=== PATIENT | female | born 1990 | race Caucasian/White ===

== ENCOUNTER 2017-01-29 20:09 | Inpatient (IN) | payer OTHER ==
[~2017-01-29] VITALS: Ht 165.1 cm; Wt 103.0 kg
[2017-01-29 20:44] LABS: BILIRUBIN NEGATIVE (NEGATIVE); BLOOD NEGATIVE Ery/uL (NEGATIVE); CLARITY CLEAR (CLEAR); COLOR YELLOW (YELLOW); GLUCOSE (U) NORMAL (NORMAL); KETONE (U) TRACE mg/dL (NEGATIVE); LEUKOCYTES NEGATIVE Leu/uL (NEGATIVE); NITRITE NEGATIVE (NEGATIVE); PROTEIN 1+ mg/dL (NEGATIVE); SPECIFIC GRAVITY >=1.030 (1.001-1.030)
[2017-01-29 20:49] LABS: BACTERIA TRACE; MUCOUS MODERATE
[2017-01-30 04:30] LABS: HCT 36.5 % (37.0-47.0); HGB 12.5 g/dl (12.5-16.0); MCH 31.4 pg (25.0-31.0); MCHC 34.2 g/dL (32.0-36.0); MCV 91.7 fL (78.0-100.0); MPV 11.6 fL (6.0-9.5); RBC 3.98 M/uL (4.20-5.40); RDW 13.6 % (11.5-14.0); WBC 15.1 K/uL (4.0-10.5)
[2017-01-30 04:53] LABS: ALBUMIN 3.2 g/dL (3.5-5.0); BILIRUBIN - TOTAL 0.5 mg/dL (0.1-1.0); CREATININE 0.8 mg/dL (0.5-1.0); GLOBULIN (CALCULATION) 3.1 g/dL (2.2-4.2); POTASSIUM 4.4 mmol/L (3.5-5.1); TOTAL PROTEIN 6.3 g/dL (6.4-8.3); URIC ACID 5.1 mg/dL (2.4-5.7)
[2017-01-30 18:46] LABS: HGB 10.9 g/dl (12.5-16.0); MCH 31.9 pg (25.0-31.0); MCHC 34.1 g/dL (32.0-36.0); MCV 93.6 fL (78.0-100.0); RBC 3.42 M/uL (4.20-5.40); RDW 13.8 % (11.5-14.0)
== END 2017-02-01 10:50 | disposition home or self-care (01) | DRG 775 ==
LOC: FOD 20:09 → FOB 20:09 → FOD 21:08 → FOB 21:09
PROVIDERS: ADMIT Obstetrics & Gynecology
PROC: 10E0XZZ Delivery of Products of Conception, External Approach (ICD-10-PCS; principal; 2017-01-29)
PROC: 3E0P7GC Introduction of Other Therapeutic Substance into Female Reproductive, Via Natural or Artificial Opening (ICD-10-PCS; 2017-01-29)
PROC: 0HQ9XZZ Repair Perineum Skin, External Approach (ICD-10-PCS; 2017-01-29)
DX: O14.94 Unspecified pre-eclampsia, complicating childbirth (principal); D62 Acute posthemorrhagic anemia; O99.334 Smoking (tobacco) complicating childbirth; F17.210 Nicotine dependence, cigarettes, uncomplicated; O26.03 Excessive weight gain in pregnancy, third trimester; Z3A.38 38 weeks gestation of pregnancy; Z37.0 Single live birth; O69.81X0 Labor and delivery complicated by cord around neck, without compression, not applicable or unspecified; O70.0 First degree perineal laceration during delivery; O13.4 Gestational [pregnancy-induced] hypertension without significant proteinuria, complicating childbirth; Z88.0 Allergy status to penicillin; E55.9 Vitamin D deficiency, unspecified; O99.03 Anemia complicating the puerperium
CPT/HCPCS: 36415; 80053; 81001; 82570; 83615; 84156; 84550; 85025; 88307; J2300; J2310; J2795